=== PATIENT | female | born 1990 | race Hispanic/Latino ===

== ENCOUNTER 2020-03-26 21:15 | Emergency (ER) | payer OTHER ==
[2020-03-26] MEDS ORDERED: ASPIRIN 325 MG TAB PO ONE (21:41)
[2020-03-26 21:59] LABS: Basophils % (Auto) 0.7 % (0.0-1.8); Eosinophils % (Auto) 0.4 % (0.0-4.3); Hemoglobin 12.8 gm/dl (10.1-14.3); Lymphocytes # (Auto) 2.9 K/mm3 (1.2-5.4); Mean Corpuscular HGB Conc 34 % (30-34); Mean Corpuscular Volume 97 fl (79-97); Monocytes # (Auto) 0.4 K/mm3 (0.0-0.8); Platelet Count 294 K/mm3 (140-440); Red Blood Count 3.93 M/mm3 (3.65-5.03); Red Cell Distribution Width 13.1 % (13.2-15.2)
[2020-03-26 22:21] LABS: Blood Urea Nitrogen 13 mg/dL (7-17); Calcium 9.9 mg/dL (8.4-10.2); Hemolysis Index 6
[2020-03-26 22:22] LABS: BUN/Creatinine Ratio 19
--- NOTE | 2020-03-26 23:35 | XRay Report ---
CHEST 2 VIEWS, 03/26/2020 10:01 PM INDICATION: Chest pain COMPARISON: None FINDINGS: Support devices: None. Heart: The cardiac silhouette is normal in size. Lungs/pleura: The lungs are clear of focal airspace disease or significant pleural effusion. Additional findings: No significant acute abnormality. IMPRESSION: 1. No evidence of acute cardiopulmonary process. Signer Name: Concepcion Huynh MD Signed: 03/26/2020 11:24 PM Workstation Name: [id number]
--- NOTE | 2020-03-26 23:38 | Emergency Department Report ---
ED Chest Pain HPI - General Chief Complaint: Chest Pain Stated Complaint: CHEST PAIN Time Seen by Provider: 03/26/20 23:32 Source: patient, EMS Mode of arrival: Stretcher Limitations: No Limitations - History of Present Illness Initial Comments: This is a 29-year-old female with history of hypothyroidism who presents with chest pain for several days. She has central chest pressure and heartburn intermittently. At times she is had rapid heartbeat. She takes homeopathic medication [employer] 60 mg [id number] for hypothyroidism. She is concerned for mold exposure. She found out several months ago that she had mold in her apartment. She resided in this apartment for 1 year. She has had mild shortness of breath. She denies wheezing. She denies cough. She denies fever. She denies malaise. SHe has had anxiety for the last year. She is followed by diabetes clinic with [facility]. Her father at the age of 46 of heart disease several years ago. She does not have a primary care physician She denies leg pain. However she is noticed over the last few months, varicose veins in her legs are more prominent requiring make-up MD Complaint: chest pain -: Gradual, days(s) (Several days) Onset: during rest Pain Location: substernal Severity: mild Quality: pressure, other (Pressure heartburn) Improves With: nothing Worsens With: nothing re: dyspnea Other Symptoms: palpitations. denies: cough, fever, syncope - Related Data Previous Rx's Medication Instructions Recorded Last Taken Type Famotidine [Pepcid] 20 mg PO BID 30 Days #60 tablet 03/26/20 Unknown Rx Allergies Allergy/AdvReac Type Severity Reaction Status Date / Time gluten Allergy Rash Verified 03/26/20 21:40 Heart Score - HEART Score History: Slightly suspicious EKG: Normal Age: < 45 Risk factors: No known risk factors Troponin: < normal limit HEART Score: 0 ED Review of Systems ROS: Stated complaint: CHEST PAIN Other details as noted in HPI Comment: All other systems reviewed and negative Constitutional: denies: fever, malaise Respiratory: shortness of breath. denies: cough Cardiovascular: chest pain Gastrointestinal: denies: abdominal pain, nausea, vomiting ED Past Medical Hx - Past Medical History Previous Medical History?: Yes Additional medical history: Thyroid Disease - Surgical History Past Surgical History?: No - Family History Family history: CAD/RI - Social History Smoking Status: Never Smoker Substance Use Type: Alcohol - Medications Home Medications: Home Medications Medication Instructions Recorded Confirmed Last Taken Type Famotidine [Pepcid] 20 mg PO BID 30 Days #60 tablet 03/26/20 Unknown Rx ED Physical Exam - General Limitations: No Limitations General appearance: alert, in no apparent distress, other (Pleasant no acute distress) - Head Head exam: Present: atraumatic, normocephalic - Eye Eye exam: Present: normal appearance - ENT ENT exam: Present: mucous membranes moist - Neck Neck exam: Present: normal inspection, full ROM - Respiratory Respiratory exam: Present: normal lung sounds bilaterally. Absent: respiratory distress, wheezes, rales, rhonchi - Cardiovascular Cardiovascular Exam: Present: regular rate, normal rhythm, normal heart sounds. Absent: systolic murmur, diastolic murmur, rubs, gallop - GI/Abdominal GI/Abdominal exam: Present: soft, normal bowel sounds. Absent: distended, tenderness, guarding, rebound - Extremities Exam Extremities exam: Present: normal inspection - Neurological Exam Neurological exam: Present: alert, oriented X3 - Psychiatric Psychiatric exam: Present: normal affect, normal mood - Skin Skin exam: Present: warm, dry, intact, normal color. Absent: rash ED Course Vital Signs 03/26/20 21:24 Temperature 98.0 F Pulse Rate 75 Respiratory 18 Rate Blood Pressure 133/80 O2 Sat by Pulse 99 Oximetry ED Medical Decision Making - Lab Data Result diagrams: 03/26/20 21:49 03/26/20 21:49 Laboratory Results - last 24 hr 03/26/20 03/26/20 03/26/20 21:49 21:49 21:49 WBC 6.5 RBC 3.93 Hgb 12.8 Hct 38.0 MCV 97 MCH 33 H MCHC 34 RDW 13.1 L Plt Count 294 Lymph % (Auto) 44.0 H [place] % (Auto) 6.0 Eos % (Auto) 0.4 Baso % (Auto) 0.7 Lymph # 2.9 [place] # 0.4 Eos # 0.0 Baso # 0.0 Seg Neutrophils % 48.9 Seg Neutrophils # 3.2 Sodium 142 Potassium 4.2 Chloride 102.9 Carbon Dioxide 26 Anion Gap 17 BUN 13 Creatinine 0.7 Estimated GFR > 60 BUN/Creatinine Ratio 19 Glucose 102 H Calcium 9.9 Troponin T < 0.010 HCG, Qual Negative - EKG Data -: EKG Interpreted by Me EKG shows normal: sinus rhythm, axis, intervals, QRS complexes, ST-T waves Rate: normal - EKG Data Interpretation: normal EKG - Radiology Data Radiology results: report reviewed Chest radiograph: No acute findings - Medical Decision Making Chest pain for several days. Mild shortness of breath. PERC negative for PE. Chest x-ray without findings of pneumonia or pneumothorax. EKG without signs of pericarditis or arrhythmia. Next I suspect GERD versus early COVID-19 infection. Patient was given extensive verbal education. Prescribed famotidine. Patient given verbal education regarding varicose veins. Strongly recommended outpatient medicine physician follow-up. Without cough and wheezing do not suspect chest pain is related to mold exposure. Critical care attestation.: If time is entered above; I have spent that time in minutes in the direct care of this critically ill patient, excluding procedure time. ED Disposition Clinical Impression: GERD (gastroesophageal reflux disease), Mold exposure, Varicose veins of both lower extremities Disposition: DC- TO HOME OR SELFCARE Is pt being admited?: No Does the pt Need Aspirin: No Condition: Stable Instructions: Chest Pain (ED) Prescriptions: Famotidine [Pepcid] 20 mg PO BID 30 Days #60 tablet Referrals: AMELIE MICHAEL MD [Staff Physician] - 3-5 Days
[2020-03-27 00:19] VITALS: BP 122/66
== END 2020-03-27 00:28 | disposition home or self-care (01) ==
LOC: ED 21:15
DX: K21.9 Gastro-esophageal reflux disease without esophagitis (principal); I86.8 Varicose veins of other specified sites
CPT/HCPCS: 36415; 71046; 80048; 84484; 84703; 85025; 93005